=== PATIENT | male | born 1960 | race Caucasian/White ===

== ENCOUNTER → 2016-06-27 | Outpatient (CLI) | payer MEDICARE ==
[2016-06-27 07:50] LABS: ALBUMIN 3.7 GM/DL (3.2-5.2); ALBUMIN/GLOBULIN RATIO 1.19 (1.00-1.93); ALKALINE PHOSPHATASE 78 U/L (45-117); ALT/SGPT 14 U/L (12-78); ANION GAP 6 MEQ/L (8-16); AST/SGOT 12 U/L (15-37); BILIRUBIN,TOTAL 0.4 MG/DL (0.2-1.0); BLOOD UREA NITROGEN 10 MG/DL (7-18); CALCIUM LEVEL 8.8 MG/DL (8.5-10.1); CARBON DIOXIDE LEVEL 30 MEQ/L (21-32); CHLORIDE LEVEL 104 MEQ/L (98-107); CHOLESTEROL LEVEL 174 MG/DL (<200); GLOMERULAR FILTRATION RATE > 60.0 (>56); GLUCOSE, FASTING 97 MG/DL (70-105); POTASSIUM SERUM 4.7 MEQ/L (3.5-5.1); SODIUM LEVEL 140 MEQ/L (136-145); TOTAL PROTEIN 6.8 GM/DL (6.4-8.2); TRIGLYCERIDES LEVEL 69 MG/DL (<150)
== END ==
LOC: M LAB 06:36
PROVIDERS: ATTEND Family Medicine
DX: Z11.3 Encounter for screening for infections with a predominantly sexual mode of transmission (principal); I10 Essential (primary) hypertension

== ENCOUNTER → 2016-08-07 | Outpatient (CLI) | payer MEDICARE ==
[2016-08-07 13:39] LABS: FREE T4 1.25 NG/DL (0.76-1.46)
== END ==
LOC: M LAB 12:10
PROVIDERS: ATTEND Physician Assistant Medical
DX: R94.6 Abnormal results of thyroid function studies (principal)

== ENCOUNTER → 2016-11-01 | Outpatient (CLI) | payer MEDICAID, MEDICARE ==
[2016-11-01 08:30] LABS: FREE T4 1.32 NG/DL (0.76-1.46)
== END ==
LOC: M LAB 07:35
PROVIDERS: ATTEND Physician Assistant Medical
DX: R94.6 Abnormal results of thyroid function studies (principal)

== ENCOUNTER → 2018-01-12 | Outpatient (CLI) | payer MEDICARE ==
[2018-01-12 07:40] LABS: BASO # 0.1 10^3/uL (0.0-0.2); BASO % 1.2 % (0.0-1.0); EOS # 0.3 10^3/uL (0.0-0.50); EOS % 3.4 % (0.0-3.0); HEMATOCRIT 48.1 % (42.0-52.0); HEMOGLOBIN 15.9 g/dl (13.5-17.5); IMMATURE GRANULOCYTE % 0.1 % (0-3.0); LYMPH # 2.7 10^3/uL (1.5-4.5); LYMPH % 36.2 % (24.0-44.0); MEAN CORPUSCULAR HEMOGLOBIN 29.5 pg (27.0-33.0); MEAN CORPUSCULAR HGB CONC 33.1 g/dl (32.0-36.5); MEAN CORPUSCULAR VOLUME 89.2 fl (80.0-96.0); MONO # 0.6 10^3/uL (0.0-0.8); MONO % 8.7 % (0.0-5.0); NEUTROPHILS # 3.7 10^3/uL (1.8-7.7); NEUTROPHILS % 50.4 % (36.0-66.0); PLATELET COUNT, AUTOMATED 290 10^3/uL (150-450); RED BLOOD COUNT 5.39 10^6/uL (4.30-6.10); RED CELL DISTRIBUTION WIDTH 13.5 % (11.5-14.5); WHITE BLOOD COUNT 7.3 10^3/uL (4.0-10.0)
[2018-01-12 08:05] LABS: ALBUMIN 3.3 GM/DL (3.2-5.2); ALBUMIN/GLOBULIN RATIO 0.94 (1.00-1.93); ALKALINE PHOSPHATASE 92 U/L (45-117); ALT/SGPT 12 U/L (12-78); ANION GAP 3 MEQ/L (8-16); AST/SGOT 15 U/L (7-37); BILIRUBIN,TOTAL 0.5 MG/DL (0.2-1.0); BLOOD UREA NITROGEN 10 MG/DL (7-18); CALCIUM LEVEL 8.8 MG/DL (8.5-10.1); CARBON DIOXIDE LEVEL 32 MEQ/L (21-32); CHLORIDE LEVEL 103 MEQ/L (98-107); CHOLESTEROL LEVEL 176 MG/DL (<200); CHOLESTEROL RISK RATIO 5.028 (<5); CREATININE FOR GFR 0.94 MG/DL (0.70-1.30); FREE T4 1.17 NG/DL (0.76-1.46); GLOMERULAR FILTRATION RATE > 60.0 (>56); GLUCOSE, FASTING 87 MG/DL (70-100); HDL CHOLESTEROL 35 MG/DL (>40); LDL CHOLESTEROL 127 MG/DL (<100); NON-HDL-C 141 MG/DL; POTASSIUM SERUM 4.6 MEQ/L (3.5-5.1); SODIUM LEVEL 138 MEQ/L (136-145); THYROID STIMULATING HORMONE 0.357 uIU/ML (0.358-3.740); TOTAL PROTEIN 6.8 GM/DL (6.4-8.2); TRIGLYCERIDES LEVEL 71 MG/DL (<150)
== END ==
LOC: M LAB 07:13
DX: R94.6 Abnormal results of thyroid function studies (principal); I10 Essential (primary) hypertension
CPT/HCPCS: 84443

== ENCOUNTER → 2018-02-13 | Outpatient (CLI) | payer MEDICARE | LOC: M RAD 08:57 | DX: Z12.2 Encounter for screening for malignant neoplasm of respiratory organs (principal); Z87.891 Personal history of nicotine dependence; R91.8 Other nonspecific abnormal finding of lung field | CPT/HCPCS: G0297 ==

== ENCOUNTER → 2018-02-20 | Outpatient (REF) | payer MEDICARE ==
[~2018-02-20] MED LIST: HYDR12CA PO; LISI10TA4 PO
[2018-02-20 14:13] LABS: BASO # 0.1 10^3/uL (0.0-0.2); BASO % 1.3 % (0.0-1.0); EOS # 0.1 10^3/uL (0.0-0.50); EOS % 1.3 % (0.0-3.0); HEMATOCRIT 50.4 % (42.0-52.0); HEMOGLOBIN 16.8 g/dl (13.5-17.5); LYMPH # 2.4 10^3/uL (1.5-4.5); LYMPH % 31.9 % (24.0-44.0); MEAN CORPUSCULAR HEMOGLOBIN 29.5 pg (27.0-33.0); MEAN CORPUSCULAR HGB CONC 33.3 g/dl (32.0-36.5); MEAN CORPUSCULAR VOLUME 88.4 fl (80.0-96.0); MONO # 0.6 10^3/uL (0.0-0.8); MONO % 7.4 % (0.0-5.0); NEUTROPHILS # 4.4 10^3/uL (1.8-7.7); NEUTROPHILS % 57.8 % (36.0-66.0); PLATELET COUNT, AUTOMATED 331 10^3/uL (150-450); WHITE BLOOD COUNT 7.7 10^3/uL (4.0-10.0)
[2018-02-20 14:27] LABS: INR 0.97
[2018-02-20 14:28] LABS: PARTIAL THROMBOPLASTIN TIME 33.8 SECONDS (25.4-37.6)
[2018-02-20 15:55] LABS: ALBUMIN 3.9 GM/DL (3.2-5.2); ALT/SGPT 23 U/L (12-78); BILIRUBIN,TOTAL 0.7 MG/DL (0.2-1.0); BLOOD UREA NITROGEN 13 MG/DL (7-18); CALCIUM LEVEL 9.5 MG/DL (8.5-10.1); CARBON DIOXIDE LEVEL 31 MEQ/L (21-32); CHLORIDE LEVEL 94 MEQ/L (98-107); CREATININE FOR GFR 0.92 MG/DL (0.70-1.30); GLOMERULAR FILTRATION RATE > 60.0 (>56); GLUCOSE, FASTING 72 MG/DL (70-100); POTASSIUM SERUM 5.6 MEQ/L (3.5-5.1); SODIUM LEVEL 131 MEQ/L (136-145)
== END ==
LOC: M LAB REF 12:56
PROVIDERS: ATTEND Internal Medicine Pulmonary Disease
DX: J44.9 Chronic obstructive pulmonary disease, unspecified (principal)

== ENCOUNTER → 2018-02-25 | Outpatient (CLI) | payer MEDICARE ==
--- NOTE | 2018-02-25 10:44 | REP ---
CT chest without IV contrast: History: COPD. iLog protocol. CT findings: Today's CT imaging confirms the presence of a large right upper lobe perihilar mass which occludes and obscures the right upper lobe bronchus. This is unchanged from its appearance on February 13, 2018. It measures 5.9 cm in greatest diameter today. No definite hilar or mediastinal adenopathy is seen. Normal sized precarinal lymph node is seen. There is vascular calcification. There is a low-density nodule in the inferior pole of the left thyroid lobe measuring 2.3 cm in greatest diameter. No extrathoracic mass or adenopathy is seen. There are some early postobstructive changes in the right upper lobe in association with the large lesion. No other significant pulmonary nodule is seen. No adrenal lesion is observed. No bony destructive lesion is seen. Impression: Findings consistent with primary lung malignancy right upper lobe with right upper lobe bronchial obstruction and some postobstructive changes. There is a left thyroid nodule. No other significant abnormality. Comparison chest CT study February 13, 2018. Electronically Signed by Derek Sylvester MD 02/25/2018 08:30 P
== END ==
LOC: M RAD 08:27
PROVIDERS: ATTEND Internal Medicine Pulmonary Disease
DX: R91.8 Other nonspecific abnormal finding of lung field (principal); J44.9 Chronic obstructive pulmonary disease, unspecified

== ENCOUNTER → 2018-02-27 | Outpatient (CLI) | payer MEDICARE | LOC: M ADMPAT 09:57 | PROVIDERS: ATTEND Internal Medicine Pulmonary Disease | DX: R93.89 Abnormal findings on diagnostic imaging of other specified body structures (principal); Z53.8 Procedure and treatment not carried out for other reasons ==

== ENCOUNTER 2018-03-04 10:12 | Day surgery (SDC) | payer MEDICARE ==
[~2018-03-04] VITALS: Ht 175.3 cm; Wt 49.9 kg
[~2018-03-04 10:12] MED LIST changes: +LR 1,000 ML IV ONE
[2018-03-04] MEDS ORDERED: THROMBIN SOLN 5,000 UNITS VIAL As Ordered ONE (11:59)
[2018-03-04] MEDS ORDERED: CETACAINE SPRAY 5GM As Ordered ONE (11:59)
[2018-03-04] MEDS ORDERED: LIDOCAINE 1% SDV INJ 30 ML VIAL As Ordered ONE (11:59)
[2018-03-04] MEDS ORDERED: EPINEPHrine INJ 1 MG/ML 1ML AMP As Ordered ONE (12:00)
[2018-03-04] MEDS ORDERED: LIDOCAINE VISCOUS 2% SOLN 15ML UDC As Ordered ONE (12:00)
[2018-03-04] MEDS ORDERED: PROPOFOL 200 MG/20 ML VIAL As Ordered ONE (12:02)
[2018-03-04] MEDS ORDERED: ONDANSETRON 4MG/2ML VIAL (J2405) As Ordered ONE (12:02)
[2018-03-04] MEDS ORDERED: ROCURONIUM BROMIDE 50 MG/5 ML VIAL As Ordered ONE (12:02)
[2018-03-04] MEDS ORDERED: dexameTHASONE 4 MG/ML 1ML VIAL (J1100) As Ordered ONE (12:02)
[2018-03-04] MEDS ORDERED: LIDOCAINE 2% INJ 100 MG/5 ML SDV (FOR ANES.) As Ordered ONE (12:02)
[2018-03-04] MEDS ORDERED: EPINEPHrine 1MG/10ML SYRINGE 1.5IN As Ordered ONE (12:03)
[2018-03-04] MEDS ORDERED: fentaNYL 100 MCG/2 ML INJECTION (J3010) As Ordered ONE (12:04)
[2018-03-04] MEDS ORDERED: MIDAZOLAM INJ 2 MG/2 ML VIAL (J2250) As Ordered ONE (12:04)
[2018-03-04] MEDS ORDERED: PHENYLephrine HCL 500 MCG/5 ML (100MCG/ML) SYRINGE (J2370) As Ordered ONE (12:51)
[2018-03-04] MEDS ORDERED: SUGAMMADEX SODIUM 500 MG/5 ML VIAL (BRIDION) As Ordered ONE (13:49)
[2018-03-04] MEDS ORDERED: LEVALBUTEROL 1.25 MG/0.5 ML CONCENTRATE NEB As Ordered ONE (14:07)
[2018-03-04] MEDS ORDERED: fentaNYL 100 MCG/2 ML INJECTION (J3010) IV PRN (14:30)
[2018-03-04] MEDS ORDERED: LR 1,000 ML IV SCH (14:30)
[2018-03-04] MEDS ORDERED: ONDANSETRON 4MG/2ML VIAL (J2405) IV PRN (14:30)
[2018-03-04] MEDS ORDERED: PERCOCET 5MG/325MG TAB PO PRN (14:30)
--- NOTE | 2018-03-04 14:49 | REP ---
Clinical: Postoperative evaluation. Findings: Area of opacity identified along the medial right upper lobe inseparable from the right suprahilar region of the mediastinum. The cardiac silhouette is normal. The remainder of lung chapin demonstrate chronic-appearing interstitial changes. No effusion. No pneumothorax. Skeletal structures intact. Impression: Medial right upper lobe opacity appears relatively decreased in size when compared with chest CT dated 02/25/2018. Electronically Signed by Ata Muhammad MD 03/04/2018 02:41 P
[2018-03-04 14:50] VITALS: BP 134/73
[2018-03-04] MEDS ORDERED: LEVALBUTEROL 1.25 MG/0.5 ML CONCENTRATE NEB NEB ONE (15:00)
--- NOTE | 2018-03-12 15:08 | ROOR ---
Patient Name: Gopal Vickers Procedure Date: 03/04/2018 12:34 PM Date of : 1960 Admit Type: Outpatient Age: 58 Note Status: Finalized Attending MD: Audelia Peralta MD Procedure: Bronchoscopy Indications: Right upper lobe mass Providers: Audelia Peralta MD (Doctor) Referring MD: 1. No Referring Physician 1. No Referring Physician, Admin. (Referring MD) Requesting Physician: Medicines: Cetacaine topical, General Anesthesia Complications: No immediate complications. Estimated blood loss: Minimal Procedure: Pre-Anesthesia Assessment: - Prior to the procedure, a History and Physical was performed, and patient medications and allergies were reviewed. The patient's tolerance of previous anesthesia was also reviewed. The risks and benefits of the procedure and the sedation options and risks were discussed with the patient. All questions were answered, and informed consent was obtained. Prior Anticoagulants: The patient has taken no previous anticoagulant or antiplatelet agents. ASA Grade Assessment: III - A patient with severe systemic disease. After reviewing the risks and benefits, the patient was deemed in satisfactory condition to undergo the procedure. The Bronchoscope was introduced through the mouth, via the endotracheal tube (the patient was intubated for the procedure) and advanced to the tracheobronchial tree of both lungs. The procedure was accomplished without difficulty. The patient tolerated the procedure well. Findings: Respiratory tract: The trachea is of normal caliber. The salazar is sharp. The entire tracheobronchial tree was examined to at least the first subsegmental level except in the right upper lobe. Bronchial mucosa and anatomy are normal; there were no endobronchial lesions and no secretions, except in the right main stem bronchus and in the right upper lobe orifice. There were white/cannon friable endobronchial lesions in right main stem bronchus extending slightly into the right bronchus intermedius. In the right upper lobe orifice there was a soft tissue friable lesion obstructing the orifice. There were some secretions in right middle lobe and right lower lobe but no endobronchial lesions. In the left main stem bronchus there did not appear to be any endobronchial lesions, there were some mucoid secretions noted on left side but easily suctioned. Brushings of the lesions were obtained in the right mainstem bronchus with a cytology brush and sent for routine cytology. Endobronchial biopsies of the lesions were performed in the right mainstem bronchus and in the right upper lobe using a forceps and sent for routine cytology. Estimated blood loss: minimal. Washings were obtained in the right mainstem bronchus and sent for cell count, bacterial culture, viral smears & culture, and fungal & AFB analysis and cytology. The return was blood-tinged. An endobronchial ultrasound endoscope was utilized in order to assist with fine needle aspiration in the right paratracheal area, in the subcarinal area and in the left hilum. Transbronchial needle aspirations of lymph nodes were performed in the right paratracheal area, in the subcarinal area and in the left hilum using an Olympus EBUS-TBNA 21 gauge needle and sent for routine cytology. The procedure was guided by ultrasound. Impression: - Right upper lobe mass - Brushings were obtained. - An endobronchial biopsy was performed. - Washings were obtained. - Endobronchial ultrasound was performed. - A transbronchial needle aspiration was performed. Recommendation: - Await test results. - Follow up with bronchoscopist as previously scheduled. Attending Participation: I personally performed the entire procedure. Audelia Peralta MD 03/12/2018 3:08:37 PM Number of Addenda: 0 Note Initiated On: 03/04/2018 12:34 PM
== END 2018-03-04 15:28 | disposition home or self-care (01) ==
LOC: M SDC 10:12
PROVIDERS: ATTEND Internal Medicine Pulmonary Disease
DX: C34.01 Malignant neoplasm of right main bronchus (principal); C77.1 Secondary and unspecified malignant neoplasm of intrathoracic lymph nodes; J44.9 Chronic obstructive pulmonary disease, unspecified; I10 Essential (primary) hypertension; H81.09 Meniere's disease, unspecified ear; K21.9 Gastro-esophageal reflux disease without esophagitis; F17.218 Nicotine dependence, cigarettes, with other nicotine-induced disorders; M54.2 Cervicalgia; R06.83 Snoring; Z87.81 Personal history of (healed) traumatic fracture; Z85.828 Personal history of other malignant neoplasm of skin
CPT/HCPCS: 31623; 31628; 31652; 71045; 87070; 87102; 87116; 87205; 87206; 88104; 88173; 88305; 88313; J1100; J2250; J2370; J2405; J3010

== ENCOUNTER → 2018-03-31 | Outpatient (CLI) | payer MEDICARE ==
[~2018-03-31] MED LIST changes: -LR 1,000 ML IV ONE
--- NOTE | 2018-04-01 08:24 | REP ---
PET/CT: HISTORY: Initial staging lung cancer, right upper lobe. 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 COMPARISONS: Comparison CT study February 25, 2018. TECHNIQUE: 1 hour 19 minutes following the intravenous injection of a 7.5 mCi dose of F-18 FDG, three-dimensional PET scintigraphy is acquired from the skull base to the proximal thighs. Triplanar noncontrast CT scanning is acquired through the same anatomic range for attenuation correction, and image registration with scan parameters optimized to minimize radiation exposure to the patient. PET scintigraphy and CT datasets were fused and displayed on a workstation with multiplanar and projection display capability. PET/CT FINDINGS: The right upper lobe mass shows hypermetabolic uptake, particularly along its medial aspect. Maximum standard uptake value is 21.1. There is annular uptake around a central area of fluid or necrosis within the lesion. Hypermetabolic uptake from the inferior aspect of the mass extends into the superior right hilus. This is seen adjacent to and produces some narrowing of the right mainstem bronchus. The right upper lobe bronchus appears to be occluded by the lesion. There is a small hypermetabolic focus posteriorly along the major fissure, which is slightly thickened at the posterosuperior margin of the mass. This small subcentimeter focus has maximum standard uptake value 8.2. No other abnormal pulmonary parenchymal hypermetabolic uptake is seen. There is normal variant skeletal muscle uptake in the head and neck region. A multinodular enlargement of the thyroid gland is seen with no hypermetabolic uptake within it. In the abdomen and pelvis, there is no abnormal adrenal or hepatic hypermetabolic uptake. No abnormal jade uptake is seen. IMPRESSION: Hypermetabolic uptake is seen heterogeneously about and adjacent to the necrotic mass in the right upper lobe as well as extending into the right hilus obstructing the right upper lobe bronchus. Electronically Signed by Derek Sylvester MD 04/01/2018 08:50 A
== END ==
LOC: M PLARAD 12:52
PROVIDERS: ATTEND Internal Medicine Pulmonary Disease
DX: C34.11 Malignant neoplasm of upper lobe, right bronchus or lung (principal)
CPT/HCPCS: 78815; A9552

== ENCOUNTER → 2018-05-05 | Outpatient (CLI) | payer MEDICARE ==
[~2018-05-05] MED LIST changes: +ANOR1AER PO; +OXYC10TA12 PO; +STIO1AER PO; +VIRT1SOL13 PO; +XANA0.5T PO
== END ==
LOC: M ONCR 13:48
PROVIDERS: ATTEND Radiology Radiation Oncology
DX: C34.90 Malignant neoplasm of unspecified part of unspecified bronchus or lung (principal)

== ENCOUNTER → 2018-05-12 | Outpatient (CLI) | payer MEDICARE | LOC: M RAD 14:04 | PROVIDERS: ATTEND Radiology Radiation Oncology | DX: C34.90 Malignant neoplasm of unspecified part of unspecified bronchus or lung (principal) | CPT/HCPCS: 71046; 78598; A9540; A9567 ==

== ENCOUNTER → 2018-05-25 | Outpatient (CLI) | payer MEDICARE ==
--- NOTE | 2018-05-12 15:35 | REP ---
Chest x-ray: Two views. History: Lung carcinoma. Comparison study: March 04, 2018. Findings: There is a large right upper lobe mass again noted. This is increased in size from the comparison portable chest x-ray. It measures approximately 3.6 cm in short axis dimension today, previously 2.1 cm. On the lateral radiograph the lesion is 7.5 cm in long axis dimension. The remaining lung chapin are clear. Pleural angles are sharp. Heart is not enlarged. Pulmonary vasculature is not increased. Impression: Interval increase in the size of the right upper lobe mass. Electronically Signed by Derek Sylvester MD 05/12/2018 04:00 P
--- NOTE | 2018-05-12 15:38 | REP ---
NUCLEAR LUNG VENTILATION AND PERFUSION SCAN: Following the intravenous administration of 1 mCi of technetium 99m tagged MAA and the inhalation of 2 mCi of technetium 99m DTPA aerosol, multiple images are obtained in the anterior and posterior projections. Differential counts were obtained in the upper, middle and lower thirds of each lung. The mean perfusion of the left lung is 557% and of the right lung is 44.3%. The mean ventilation of the left lung is 53.7% and of the right lung is 46.3%. There is a prominent matching defect in the right upper lobe. Electronically Signed by Tyrone Palacios MD 05/13/2018 01:50 P
--- NOTE | 2018-05-25 19:30 | REP ---
MRI brain without and with IV contrast: History: Lung carcinoma. Question metastasis. Comparison brain MRI study is from November 13, 2011. Technique: Axial and sagittal imaging planes are utilized for T1 and T2-weighted scans. Sequences include spin-echo, fast spin echo, FLAIR, and diffusion weighted sequences. Gadolinium enhancement dose: 10 mL of intravenous ProHance. MRI findings: No bony calvarial lesion is seen. No intraorbital abnormalities observed. There is no MR evidence of significant paranasal sinus disease. A diffusion weighted scan show no evidence of restricted diffusion to suggest acute ischemia or other lesion. There is no evidence of intracranial hemorrhage. There is an old lacunar infarct in the caudate nucleus on the left and to a lacunar infarct is seen affecting the anterior limb of the internal capsule on the left. These findings are unchanged from the 2012 prior exam. There is also evidence of an old lacunar infarct in the basal ganglia on the right involving the head of the caudate nucleus. This was not apparent in 2012 study. However, it has a chronic appearance on today's MR images. There are small vessel changes in the periventricular white matter bilaterally. There is no evidence of intracranial mass, extra-axial fluid collection, or midline shift. No significant vascular abnormality. Postcontrast images show enhancement in normal vasculature. No abnormal contrast enhancement is seen. There is no evidence to suggest intracranial metastasis. 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 No evidence to suggest intracranial metastasis. No acute intracranial lesion. Small vessel changes are noted. Electronically Signed by Derek Sylvester MD 05/25/2018 08:57 P
== END ==
LOC: M PLARAD 15:48
PROVIDERS: ATTEND Internal Medicine Hematology & Oncology
DX: C34.90 Malignant neoplasm of unspecified part of unspecified bronchus or lung (principal)
CPT/HCPCS: 36415; 70553; 71046; 78598; 80053; 85027; A9540; A9567; A9576

== ENCOUNTER → 2018-06-08 | Outpatient (CLI) | payer MEDICARE ==
--- NOTE | 2018-06-09 14:58 | RADONC ---
RADIATION ONCOLOGY PROGRESS NOTE DATE: 06/08/2018 CHART NUMBER: [id number] PROGRESS NOTE: Mr. Vickers is thus far at a dose of 2400 cGy to his lung and was last treated on 06/05/2018. The patient came in today reporting that he has not had a bowel movement and that he has not been eating or drinking. He feels quite weak. REVIEW OF SYSTEMS: The patient's review of systems is positive for his weakness and anorexia, well as pain upon swallowing. He denies nausea, vomiting, fevers, chills, night sweats, diplopia, headaches, anxiety or depression, visual disturbances, urinary difficulties or bone pain. PHYSICAL EXAMINATION: On physical exam, the patient is 101 pounds today, down almost 8 pounds in the past week. He is down a total of 14 pounds in the past 5 weeks. The skin is in good condition with no evidence of radiation change present. He appears weak. The patient will remain on rest this week. I have given him a liter of IV fluids today and he will be returning tomorrow for more IV fluids. I have recommended that he go to the emergency room but he absolutely refused. We will continue to follow him closely in the meantime and radiation will possibly re-begin next week if he improves.
== END ==
LOC: M ONCR 13:08
PROVIDERS: ATTEND Radiology Radiation Oncology
DX: C34.11 Malignant neoplasm of upper lobe, right bronchus or lung (principal); R63.0 Anorexia; R53.1 Weakness; R50.9 Fever, unspecified

== ENCOUNTER → 2018-06-16 | Outpatient (CLI) | payer MEDICARE ==
[~2018-06-16] MED LIST changes: +GASTROGRAFIN SOLUTION 30ML (Q9963) As Ordered ONE; +ISOVUE-370 76% 100ML VIAL (Q9967) As Ordered ONE
--- NOTE | 2018-06-16 18:00 | REP ---
CT of the chest with IV contrast: Comparison is 02/25/2018. The previously identified right upper lobe, paramediastinal mass is again identified today. This mass maximally measures 6.1 cm in diameter today. It measured 5.9 cm previously. There is a 3 mm lung nodule in the right upper lobe on image 32. This is unchanged. There are no other lung masses or nodules. There are no acute infiltrates or effusions. There is no mediastinal lymph node enlargement. The mass extends into the right paratracheal mediastinum. I suspect there is wall thickening of the distal esophagus. The thoracic aorta is unremarkable. Cardiac size is normal. There is no pericardial effusion. There are sclerotic changes adjacent to the inferior endplates of the T8 and T11 vertebral bodies, blastic metastasis versus changes secondary to degenerative disc disease. There is a lytic lesion in the T6 vertebral body on the right adjacent to the right upper lobe mass. Impression: Right upper lobe paramediastinal mass as described. There is a lytic lesion in the right lateral portion of the T6 vertebral body as an interval change suggesting either metastasis or direct tumor extension. There are sclerotic changes in the T8 and T11 vertebral bodies, unchanged, secondary to degenerative disc disease versus blastic metastases. Wall thickening of the distal esophagus. Electronically Signed by Tyrone Schmidt MD 06/16/2018 05:51 P
--- NOTE | 2018-06-16 18:13 | REP ---
CT of the abdomen and pelvis with IV and oral contrast: There are no comparison studies. There is minimal subcutaneous and intraperitoneal body fat. The hepatic parenchyma is homogeneous. There are no hepatic metastases. The gallbladder is unremarkable. The pancreas is unremarkable. The spleen is normal size, however, there are occasional small lucencies in the spleen, not as concentric, hematomas versus splenic masses. There is no adrenal mass. The kidneys are unremarkable except for small simple renal cortical cysts in the left renal upper pole. The abdominal aorta is unremarkable. No retroperitoneal mass or adenopathy are identified. There is minimal peritoneal fat bowel loops. There is a large volume of fecal residue throughout the entire colon. There is no bowel obstruction. Pelvis: Bladder is unremarkable. No pelvic adenopathy. No ascites. There are no lytic, blastic or destructive skeletal changes. Impression: Minimal subcutaneous and intraperitoneal body fat. Tiny lucencies in the spleen, nonspecific, splenic, acute versus chronic hematomas versus metastases. No adenopathy or ascites. No evidence of metastases otherwise. Large volume of fecal residue throughout the entire colon compatible with constipation. Electronically Signed by Tyrone Schmidt MD 06/16/2018 06:04 P
== END ==
LOC: M RAD 14:35
PROVIDERS: ATTEND Internal Medicine Pulmonary Disease
DX: C34.11 Malignant neoplasm of upper lobe, right bronchus or lung (principal); D73.89 Other diseases of spleen; K56.41 Fecal impaction; M51.34 Other intervertebral disc degeneration, thoracic region; R14.0 Abdominal distension (gaseous); R04.2 Hemoptysis
CPT/HCPCS: 71275; 74177; 77387; 77412; Q9963; Q9967

== ENCOUNTER → 2018-07-07 | Outpatient (RCR) | payer MEDICARE ==
--- NOTE | 2018-06-15 08:56 | RADONC ---
RADIATION ONCOLOGY PROGRESS NOTE DATE OF SERVICE: 06/15/2018 CHART #: [id number] Mr. Vickers is presently at a dose of 2600 cGy to his right lung and is tolerating treatments quite well at this point with no complaints at this time related to his radiation therapy. He had been off last week and taking IV fluids. He is able to swallow and has no pain at this time. He continues to have some constipation and I have recommended a Fleets enema. On physical exam, the patient's skin is in good condition with no evidence of moist or dry desquamation. The remainder of his physical exam shows his weight now up to 108.8 pounds. Mr. Vickers is tolerating his treatments at this point well and has resumed radiation.
--- NOTE | 2018-06-22 09:55 | RADONC ---
RADIATION ONCOLOGY PROGRESS NOTE DATE: 06/22/2018 CHART NUMBER: [id number] PROGRESS NOTE: Mr. Vickers with a diagnosis of right lung cancer is currently receiving radiotherapy and he has achieved a dose of 3400 cGy of a proposed 4000 cGy and reevaluate. He will most likely receive an additional 2800 cGy following the 4000 cGy bringing the total dose to approximately 6800 cGy. He is actually tolerating his radiotherapy reasonably well but he does have issues with nutrition. REVIEW OF SYSTEMS: He denies any nausea, vomiting, coughing, sputum production or hemoptysis. His energy level is such that he is able to maintain many of his day-to-day activities. He has been given information as to maintaining his weight. EXAMINATION FINDINGS: The patient's skin shows no evidence of erythema and certainly no focal desquamation. Lungs are clear to auscultation and percussion. IMPRESSION Tolerating therapy reasonably well. PLAN: Nutritional supplementation and treatments to continue. MTDD
--- NOTE | 2018-07-01 10:52 | RADONC ---
RADIATION ONCOLOGY PROGRESS NOTE DATE: 06/30/2018 CHART NUMBER: [id number] PROGRESS NOTE: Mr. Vickers is presently at a dose of 4600 cGy to his right lung and reports that he once again has difficulty swallowing and has been drinking very little. He reports that he has had little urinary output as well. The patient's review of systems is positive for difficulty swallowing but is otherwise generally noncontributory. He does not report any weakness at this time. He denies nausea, vomiting, fevers, chills, night sweats, diplopia, headaches, anxiety or depression, visual disturbances or neurological problems. He is now on methadone as a pain medication. On physical exam, the patient has lost 3.4 pounds in the past week. His skin remains in good condition. His physical exam is otherwise unchanged. I have prescribed a liter of IV fluids to be delivered today for this patient. He has also been instructed to feel free come in tomorrow if he would like more fluids. In the meantime, I have placed him on rest from radiation at this time until Friday. Once again in summary, we are giving him IV fluids today. He will most likely come in tomorrow and the next day if he so desires for further fluids, and we will reevaluate him on Friday for further radiation. We have discussed hospice with him following completion of these treatments.
[~2018-07-07] MED LIST changes: -GASTROGRAFIN SOLUTION 30ML (Q9963) As Ordered ONE; -ISOVUE-370 76% 100ML VIAL (Q9967) As Ordered ONE
--- NOTE | 2018-07-08 06:53 | RADONC ---
RADIATION ONCOLOGY PROGRESS NOTE DATE: 07/06/2018 CHART NUMBER: [id number] Mr. Vickers is presently at a dose of 4800 cGy to his right lung and is tolerating treatments quite well at this point with no difficulties at this time related to his radiation therapy. He has been able to swallow and his weight has gone back to 104.8 pounds, which is generally stable. REVIEW OF SYSTEMS: The patient's review of systems is positive for continued weakness and physical limitations as well as some pain, but is otherwise in generally noncontributory. He denies nausea, vomiting, fevers, chills, night sweats, diplopia, headaches, anxiety or depression, anorexia, weight loss, visual disturbances, chest pain, urinary or bowel difficulties, bone pain or neurological problems. PHYSICAL EXAMINATION: The patient is a cachectic white male in no acute distress. The patient's skin remains in good condition with no evidence of moist or dry desquamation. His weight again is 104 pounds of 3-1/2 pounds since last week. The remainder of his physical exam remains unchanged. Mr. Vickers is tolerating treatments quite well and radiation will continue as scheduled.
== END ==
LOC: M ONCR 06-08 07:56
PROVIDERS: ATTEND Radiology Radiation Oncology
DX: C34.11 Malignant neoplasm of upper lobe, right bronchus or lung (principal)

== ENCOUNTER 2018-07-20 07:46 | Outpatient (RCR) | payer MEDICARE ==
--- NOTE | 2018-07-13 10:49 | RADONC ---
RADIATION ONCOLOGY PROGRESS NOTE DATE: 07/13/2018 CHART #: [id number] Mr. Vickers is presently at a dose of 5800 cGy to his right lung mass and mediastinum and is tolerating treatments quite well at this point with no complaints at this time related to his radiation therapy. He reports that he is able to swallow and drink. He is having no increased difficulty breathing. REVIEW OF SYSTEMS: The patient's review of systems is noncontributory except for his physical limitations and overall weakness. Denies nausea, vomiting, fevers, chills, night sweats, diplopia, headaches, anxiety or depression, anorexia, weight loss, visual disturbances, chest pain, urinary or bowel difficulties, bone pain, or neurological problems. PHYSICAL EXAMINATION: Unfortunately, the patient's weight today is 99 pounds. He is down 6 pounds in the past week. His skin is in good condition. The remainder of his physical exam remains unchanged. I offered the patient some IV fluids, but he says he is feeling great and having no difficulties. He reports that he has been quite active in the past week and says he has not felt this good in a long time. He is now down a total of 16 pounds since initiation of treatment which is quite concerning since he tells me he is not having any difficulty with swallowing. Indeed, he is drinking grapefruit juice and this is not causing him any pain. We are approaching completion of radiation however and radiation will continue as scheduled. I did offer him IV fluids and he does not wish any today. He may agree to some he told me later in the week if his weight does not come up. In the meantime, radiation will continue for now. He is discussing hospice as well.
--- NOTE | 2018-07-20 14:09 | RADONC ---
RADIATION ONCOLOGY TREATMENT SUMMARY DATE: 07/20/2018 CHART NUMBER: [id number] DIAGNOSIS: Right lung cancer. STAGE: Stage III B, T4N2M0. ECOG PERFORMANCE STATUS: 0. Plan of local regional radiotherapy for local regional control. DATES: Date radiotherapy started 05/21/2018. Date radiotherapy completed 07/20/2018. DOSE: The patient received a total of 6800 cGy administered in 34 fractions over 60 elapsed days. He was treated exclusively with a 15 MV photon beam 100 cm SAD isocenter technique. He was treated with three-dimensional conformal radiotherapy via AP, PA, as well as oblique chapin. Prior to treatment delivery localization was accomplished upon our CT simulator and treatment portals were defined by the use of multiple leaf collimators. STATUS OF TUMOR: The patient's tumor status will be determined in the future with radiographic studies and her overall clinical performance status. TOLERANCE: In general, treatments were relatively well tolerated. He was having to receive intravenous fluids at the completion of his radiotherapy and again today was administered 1 liter of normal saline. We would like him to return to our clinic in approximately 1 month for post radiotherapy followup visit and skin check. He was advised to return to his referring physicians as per their directions and instructions. cc: MD Mindy Segovia MD MTDD
== END 2018-08-07 ==
LOC: M ONCR 07:46
PROVIDERS: ATTEND Radiology Radiation Oncology
DX: C34.11 Malignant neoplasm of upper lobe, right bronchus or lung (principal)